=== PATIENT | female | born 1970 | race Caucasian/White ===

== ENCOUNTER 2025-05-20 23:02 | Emergency (ER) | payer SELFPAY ==
--- OUTSIDE RECORDS SUMMARY | 2025-05-20 23:09 | XMS_ITS | Encounter Summary ---
Author Organization [facility] Address [address] [place] [address] Care Team Providers Care School Office Assistant Name Role Phone Jeison Harmon DO Primary Care Provider [phone] Encounter Details Date Type Department Care Team (Late st Contact Info) Description 05/15/2025 External Device Data [facility]STRACTION Provider, Abstract NO ADDRESS ON FILE Social History Tobacco Use Types Packs/Day Years Used Date Smoking Tobacco: Every Day Cigarettes 1 20 Smokeless Tobacco: Never Alcohol Use Standard Drinks/Week Comments Not Currently 0 (1 standard drink = 0.6 oz pur e alcohol) Comments No Sex and Gender Information Value Date Recorded Sex Assigned at Not on file Legal Sex Female 3:25 PM CDT Gender Identity Not on file Sexual Orientation Not on file documented as of this encounter Plan of Treatment Not on file documented as of this encounter Visit Diagnoses Not on filedocumented in this encounter Care Teams School Office Assistant Relationship Specialty Start Date End Date Jeison Harmon DO [address] [place] [address] PCP - General Family Practice 12/17/22 documented as of this encounter
--- OUTSIDE RECORDS SUMMARY | 2025-05-20 23:09 | XMS_ITS | Clinical Summary ---
Author Organization [facility] [address] [facility] Address [address] [place] [address] Phone Care Team Providers Care Dye Machine Operator Name Role Phone Jeison Harmon Primary Care Provider [phone] Allergies No known active allergies Medications No known medications Active Problems No known active problems Encounters Date Type Department Care Team Description 05/15/2025 External Device Data [facility] ABSTRACTION Provider, Abstract 05/08/2025 External Device Data [facility] ABSTRACTION Provider, Abstract 03/28/2025 External Device Data [facility] ABSTRACTION Provider, Abstract 03/27/2025 External Device Data [facility] ABSTRACTION Provider, Abstract from Last 3 Months Family History Medical History Relation Name Comments Heart Disease Father Lung Cancer Maternal Grandfather No Known Problems Maternal Grandmother Breast Cancer Mother No Known Problems Paternal Grandfather No Known Problems Paternal Grandmother Heart Attack Paternal Uncle Blindness Neg Hx Cataract Neg Hx Detachment/Tears Neg Hx Diabetes Neg Hx Glaucoma Neg Hx Macular Degen Neg Hx Relation Name Status Comments Father Maternal Grandfather Maternal Grandmother Mother Paternal Grandfather Paternal Grandmother Paternal Uncle Sister 1 Alive Sister 2 Alive Social History Tobacco Use Types Packs/Day Years Used Date Smoking Tobacco: Every Day Cigarettes 1 20 Smokeless Tobacco: Never Tobacco Cessation:Ready to Q uit: Not Asked; Counseling Given: Not Answered Alcohol Use Standard Drinks/Week Comments Not Currently 0 (1 standard drink = 0.6 oz pur e alcohol) Comments No Sex and Gender Information Value Date Recorded Sex Assigned at Not on file Legal Sex Female 3:25 PM CDT Gender Identity Not on file Sexual Orientation Not on file Last Filed Vital Signs Vital Sign Reading Time Taken Comments Blood Pressure 169/94 10/13/2024 11:48 AM CDT Pulse 99 10/13/2024 11:48 AM CDT Temperature 36.7 C (98.1 F) 12/17/2022 3:04 PM CDT Respiratory Rate - - Oxygen Saturation 99% 12/17/2022 3:04 PM CDT Inhaled Oxygen Concentration - - Weight 90 kg (198 lb 6.4 oz) 12/17/2022 3:04 PM CDT Height 170.2 cm (5' 7 ) 12/17/2022 3:04 PM CDT Body Mass Index 31.07 12/17/2022 3:04 PM CDT Plan of Treatment Health Maintenance Due Date Last Done Comments DTAP/TDAP/TD VACCINES (1 - Tdap) 1990 HEPATITIS B VACCINES (1 of 3 - 19+ 3-dose series) 01/30 HPV/Cotest (21-29) 02/27/1992 CERVICAL CANCER SCREENING 2001 HPV/Cotest (30-65) 2001 PAP SMEAR 2001 BREAST CANCER SCREENING 2011 COLORECTAL SCREENING 02/27/2016 Colorectal Cancer Screening 02/27/2016 FIT-DNA Q 3 years 02/27/2016 FIT/FOBT Q 1 year 02/27/2016 Flex Sig/CT Colonography Q 5 years 02/27/2016 Lung Cancer Screening 2021 ZOSTER VACCINE (1 of 2) 2021 INFLUENZA VACCINE (#1) 2024 Care Teams Dye Machine Operator Relationship Specialty Start Date End Date Jeison Harmon DO [address] [place] [address] PCP - General Family Practice 12/17/22
[2025-05-20 23:10] VITALS: BP 149/87; PULSE 141; RESP 20; TEMP 36.7; O2SAT 96; BMI 28.9
--- NOTE | 2025-05-20 23:15 | ECG_ITS ---
[facility]25-05[facility]20 Pat Name: Nel Rock Department: Room: Gender: Female Loan Funder: : 1970 Requested By: Viktor Espana Order Number: [id number] Reading MD: OSMAN MONTEIRO Measurements Intervals [place] Rate: 129 P: 79 [place]: 132 QRS: 58 QRSD: 82 T: 64 QT: 334 QTc: 490 Interpretive Statements SINUS TACHYCARDIA NONSPECIFIC T-WAVE ABNORMALITY ABNORMAL RHYTHM ECG No previous ECG available for comparison Electronically Signed On 05-22-2025 12:00:16 MEAT HOSTESS by OSMAN MONTEIRO [id number]
--- NOTE | 2025-05-20 23:40 | CTR_ITS ---
PROCEDURE INFORMATION: Exam: CTA Chest With Contrast Exam date and time: 05/21/2025 12:13 AM Age: 55 years old Clinical indication: Shortness of breath and other: Tachycardia; Chest pressure; Pleuritic chest pain with SOB and tachycardia; Additional info: 1w prog SOB, pleuritic cp TECHNIQUE: Imaging protocol: Computed tomographic angiography of the chest with contrast. Exam focused on the arteries. 3D rendering (Not supervised by radiologist): MIP and/or 3D reconstructed images were created by the technologist. Radiation optimization: All CT scans at this facility use at least one of these dose optimization techniques: automated exposure control; mA and/or kV adjustment per patient size (includes targeted exams where dose is matched to clinical indication); or iterative reconstruction. Contrast material: OMNI 350; Contrast volume: 55 ml; Contrast route: INTRAVENOUS (IV); COMPARISON: No relevant prior studies available. RADIATION DOSE METRICS: Total DLP (mGy-cm): 407.77 FINDINGS: Pulmonary arteries: No pulmonary embolism. Aorta: Unremarkable. No aortic aneurysm. No aortic dissection. Lungs: Mild centrilobular emphysema. Pleural spaces: No focal consolidation, pleural effusion, or pneumothorax. Heart: Unremarkable. No cardiomegaly. No pericardial effusion. Lymph nodes: Unremarkable. No enlarged lymph nodes. Bones/joints: Unremarkable. No acute fracture. Soft tissues: Unremarkable. CT/CT angio chest PE protcl [id number] IMPRESSION: 1. No pulmonary embolism. 2. Mild centrilobular emphysema. 3. No focal consolidation, pleural effusion, or pneumothorax. COMMENTS: The presence of pulmonary emphysema on CT is an independent risk factor for lung cancer. In the absence of a history or active diagnosis of lung cancer, it is recommended that this patient with emphysema be evaluated for enrollment in a low dose CT lung cancer screening program.
--- NOTE | 2025-05-20 23:41 | W.ED.SOB ---
HPI - SOB/Dyspnea General: Chief Complaint: Shortness of Breath/Dyspnea Stated Complaint: SOB High pulse Time Seen by Provider: 05/20/25 23:23 History of Present Illness: HPI Narrative: Patient is a 55F with no pmhx other than heavy tobacco use who presents with worsening exertional shortness of breath over the past week, mild fatigue and appetite changes. The patient reports no chest pain, numbness, fever, or history of blood clots. Appetite is decreased, and food tastes abnormal, but the patient has maintained adequate hydration. There is no history of heart disease, recent immobilization, or long travel. The patient notes baseline arthritis in the knee but denies other musculoskeletal complaints. 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 Has not recently been on antibiotics or steroids. Related Data Allergies Allergy/AdvReac Type Severity Reaction Status Date / Time No Known Allergies Allergy Verified 05/20/25 23:15 Review of Systems General: Reports: 10 or more systems reviewed and unremarkable except in HPI and below Physical Exam Narrative: EXAM NARRATIVE: Patient well-appearing, afebrile, moderately tachycardic but normotensive on arrival, no acute distress. Tachycardic, normotensive, slightly delayed cap refill, 2+ pulses throughout, no leg swelling. Breathing comfortably on room air, slightly decreased breath sounds but nothing adventitious, able to speak in full sentences without getting short of breath, no accessory muscle usage, no signs of respiratory distress. Abdomen soft, nontender, nondistended. GCS 15, moving all 4 extremities symmetrically and spontaneously. Course Vital Signs: Vital signs: Vital Signs Temperature 98.0 F 05/20/25 23:10 Pulse Rate 101 H 05/21/25 01:31 Respiratory Rate 20 H 05/20/25 23:10 Blood Pressure 133/77 05/21/25 01:31 Pulse Oximetry 95 05/21/25 01:31 Oxygen Delivery Me thod Room Air 05/20/25 23:10 MDM - SOB/Dyspnea Medical Decision Making -ddx: URI, pneumonia, PE, ACS, heart failure, COPD, pericarditis, viral syndrome, dehydration, electrolyte abnormality Patient with 1 week of seeming URI symptoms but also with progressive shortness of breath after seemingly recovering from that illness, has had slightly decreased p.o. intake. Has a heavy history of tobacco use, no recent fevers, does not use inhalers, no chest pain or cardiac history. Due to moderate tachycardia on arrival with her moderate shortness of breath, with no real risk factors other than tobacco use for VTE but with no other great explanation, will start with fluids but also get CTA PE, infectious workup and reassess. - Patient with negative CTA PE for any VTE, pneumothorax, pneumonia, fluid overload, other cardiac or respiratory pathology. Her labs were overall reassuring, had a mildly elevated CRP and responded very nicely to 1 L of fluids, felt improved, probably mild to moderate dehydration in setting of her recent viral illness. Her BNP was very mildly elevated and with her progressive shortness of breath, we will have her referred to outpatient cardiology for formal echocardiogram for baseline testing and to evaluate for systolic and diastolic function. Remainder of labs with no signs of systemic inflammation or infection, no severe electrolyte abnormality, no evidence of endorgan ischemia, EKG tachycardic but with no evidence of acute ischemia, with her feeling better and a reassuring workup, she was discharged in stable condition and agreeable with plan for cardiology follow-up, given strict return precautions. Lab Data 05/20/25 23:28 05/20/25 23:28 Labs/Radiology: Radiology Impressions Chest CTA 05/20/25 23:40 IMPRESSION: 1. No pulmonary embolism. 2. Mild centrilobular emphysema. 3. No focal consolidation, pleural effusion, or pneumothorax. COMMENTS: The presence of pulmonary emphysema on CT is an independent risk factor for lung cancer. In the absence of a history or active diagnosis of lung cancer, it is recommended that this patient with emphysema be evaluated for enrollment in a low dose CT lung cancer screening program. Laboratory Results WBC 8.01 10^3/uL (3.29-11.43) 05/20/25 23: RBC 4.25 10^6/uL (3.85-5.65) 05/20/25 23: Hgb 10.80 g/dL (11.27-16.99) L 05/20/25 23: Hct 34.3 % (36-47) L 05/20/25 23: MCV 80.7 fl (85-98) L 05/20/25: MCH 25.4 pg (27-33) L 05/20/25 23: MCHC 31.5 g/dL (30-55) 05/20/25: RDW 14.3 % (12.1-15.1) 05/20/25: Plt Count 356 10^3/cmm (157-399) 05/20/25 23: MPV 10.9 fL (7.4-10.4) H 05/20/25: Neut % (Auto) 60.6 % 05/20/25: Lymph % (Auto) 26.5 % 05/20/25: Custer % (Auto) 8.4 % 05/20/25: Eos % (Auto) 3.2 % 05/20/25: Baso % (Auto) 0.9 % 05/20/25 Neut # (Auto) 4.86 10^3/uL (1.8-7.7) 05/20/25: Lymph # (Auto) 2.1 10^3/uL (0.8-4.8) 05/20/25: Custer # (Auto) 0.7 10^3/uL (0.2-0.9) 05/20/25: Eos # (Auto) 0.3 10^3/uL (0.0-0.8) 05/20/25: Baso # (Auto) 0.1 10^3/uL (0.0-0.1) 05/20/25: Nucleated RBC % (auto) 0 % 05/20/25: Nucleated RBCs # 0.0 /100WBC 05/20/25: PT 13.20 SECONDS (12.1-14.9) 05/20/25: INR 0.93 (0.8-1.2) 05/20/25: Specimen Type Venous 05/20/25 23:48 Regan Test N/a 05/20/25 23:48 VBG pH 7.43 (7.32-7.42) H 05/20/25 23:48 VBG pCO2 34.0 mmHg (41-51) L 05/20/25 23:48 VBG pO2 45.5 mmHg (25-40) H 05/20/25 23:48 VBG HCO3 22.6 mmol/L (24-28) L 05/20/25 23:48 VBG Base Excess -1.3 mmol/L (-3.0-3.0) 05/20/25 23:48 VBG Hematocrit 32.3 % (37-47) L 05/20/25 23:48 Spearer ID [email or web address] 05/20/25 23:48 Sodium 135 mmol/L (136-145) L 05/20/25 23:28 Potassium 3.5 mmol/L (3.5-5.1) 05/20/25 23:28 Chloride 100 mmol/L (98-107) 05/20/25 23:28 Carbon Dioxide 21 mmol/L (22-29) L 05/20/25 23:28 Anion Gap 17.5 (5-19) 05/20/25 23:28 BUN 11 mg/dL (6-20) 05/20/25 23:28 Creatinine 0.9 mg/dL (0.5-0.9) 05/20/25 23:28 GFR Calculation 65.2 mL/min (90-130) L 05/20/25 23:28 Glucose 102 mg/dL (65-115) 05/20/25 23:28 Calculated Osmolality 280 mOsm/kg (285-295) L 05/20/25 23:28 Lactic Acid 0.9 mmol/L (0.5-2.2) 05/20/25 23:28 Calcium 9.3 mg/dL (8.5-10.5) 05/20/25 23:28 Magnesium 2.1 mg/dL (1.7-2.3) 05/20/25 23:28 Total Bilirubin 0.6 mg/dL (0.15-1.2) 05/20/25 23:28 AST 17 U/L (0-32) 05/20/25 23:28 ALT 17 U/L (0-33) 05/20/25 23:28 Alkaline Phosphatase 264 U/L (35-105) H 05/20/25 23:28 C-React Prot High Sens 12.710 mg/dL (0.0-0.3) H 05/20/25 23:28 NT-Pro-B Natriuret Pep 372 pg/mL (0-125) H 05/20/25 23:28 Total Protein 8.2 g/dL (6.6-8.7) 05/20/25 23:28 Albumin 3.4 g/dL (3.5-5.2) L 05/20/25 23:28 Globulin 4.8 g/dL (1.3-4.6) H 05/20/25 23:28 Influenza A (PCR) Negative (Negative) 05/20/25 23:56 Influenza Type B (PCR) Negative (Negative) 05/20/25 23:56 RSV (PCR) Negative (Negative) 05/20/25 23:56 SARS-CoV-2 (PCR) Negative (Negative) 05/20/25 23:56 All radiology interpretation(s) finalized by discharge Discharge Plan Discharge Patient Disposition: Home Condition: Stable Discharge Orders: Discharge ED (Routine); Ordered 05/21/25 Ordered By: Viktor Espana Referrals: Belen Garcia MD [Physician, Cardiology] - 4-7 days Discharge Diet: Advance as tolerated Discharge Activity: Increase activity as tolerated Patient Instructions: Opioid Safety, Pain Management, Patient Portal & Manuela Instructions Activity Restrictions/Additional Instructions: You were seen for your shortness of breath and high heart rate, you were evaluated with labs and CT imaging that were overall reassuring for no blood clot, pneumonia or other concerning abnormalities. Your heart stretch enzyme (BNP) was mildly elevated and so for this, you will be referred to cardiology for a formal echocardiogram to fully evaluate the activity and function of your heart. But you are free to resume normal activity and working as tolerated. Return to the ED with severe worsening shortness of breath, fevers that do not improve with Tylenol, inability to eat or drink, episodes of passing out, any other emergent concerns. Print Language: [place] Coding Level of Care Code ED Quality Control Representative for Nancy Trujillo
[2025-05-20 23:54] LABS: INR 0.93 (0.8-1.2); Prothrombin Time 13.20 SECONDS (12.1-14.9)
[2025-05-20 23:54] LABS: Base Excess VBG -1.3 mmol/L (-3.0-3.0); Blood Gas Sample Type Venous; HCO3 VBG 22.6 mmol/L (24-28); PCO2 VBG 34.0 mmHg (41-51); PO2 VBG 45.5 mmHg (25-40); Venous Blood Gas Hematocrit 32.3 % (37-47); pH VBG 7.43 (7.32-7.42)
[2025-05-21] MEDS: iohexol 350 mg/mL 500 mL Btl (per mL) IV (00:15)
[2025-05-21 00:23] VITALS: BP 149/82; PULSE 107; O2SAT 96
[2025-05-21 00:23] LABS: Lactic Sepsis W/Reflex 0.9 mmol/L (0.5-2.2)
[2025-05-21 00:34] LABS: Alanine Aminotransferase 17 U/L (0-33); Albumin Level 3.4 g/dL (3.5-5.2); Alkaline Phosphatase 264 U/L (35-105); Anion Gap 17.5 (5-19); Aspartate Amino Transferase 17 U/L (0-32); Blood Urea Nitrogen 11 mg/dL (6-20); Calcium 9.3 mg/dL (8.5-10.5); Carbon Dioxide 21 mmol/L (22-29); Chloride 100 mmol/L (98-107); Globulin 4.8 g/dL (1.3-4.6); Glucose 102 mg/dL (65-115); Magnesium 2.1 mg/dL (1.7-2.3); NT Pro B Type Natriuretic Pept 372 pg/mL (0-125); Osmolality Calculated 280 mOsm/kg (285-295); Potassium 3.5 mmol/L (3.5-5.1); Sodium 135 mmol/L (136-145); Total Protein 8.2 g/dL (6.6-8.7)
[2025-05-21 00:35] LABS: Respiratory Syncytial Virus Ce NEGATIVE (Negative); SARS-CoV-2 PCR NEGATIVE (Negative)
[2025-05-21 00:40] LABS: Hematocrit 34.3 % (36-47); Hemoglobin 10.80 g/dL (11.27-16.99); Mean Corpuscular HGB Conc 31.5 g/dL (30-55); Mean Corpuscular Hemoglobin 25.4 pg (27-33); Mean Corpuscular Volume 80.7 fl (85-98); Nucleated Red Blood Cells % 0 %; Platelet Count 356 10^3/cmm (157-399); Red Blood Count 4.25 10^6/uL (3.85-5.65); White Blood Count 8.01 10^3/uL (3.29-11.43)
[2025-05-21 01:31] VITALS: BP 133/77; PULSE 101; O2SAT 95
== END 2025-05-21 01:38 | disposition home or self-care (01) ==
PROVIDERS: Emergency Provider Student in an Organized Health Care Education/Training Program
DX: R06.02 Shortness of breath (principal); R07.89 Other chest pain; R53.83 Other fatigue; R00.0 Tachycardia, unspecified; J43.2 Centrilobular emphysema; Z11.52 Encounter for screening for COVID-19
CPT/HCPCS: 71275; 80053; 82803; 83605; 83735; 83880; 85025; 85610; 86141; 87637; 93005; 96360; 99285; J7030